=== PATIENT | female | born 1940 | race Caucasian/White ===

== ENCOUNTER 2021-02-12 15:48 | Emergency (ER) | payer OTHER ==
[~2021-02-12] VITALS: Ht 167.6 cm; Wt 79.4 kg
--- NOTE | 2021-02-12 16:08 | NUR ---
DELI CLERK: PT TO ROOM FROM LOBBY
[2021-02-12 16:26] VITALS: BP 126/77
--- NOTE | 2021-02-12 16:28 | NUR ---
PT PRESENTS TO ED WITH C/O R SIDED FACIAL PAIN. SWELLING/ERYTHEMA NOTED TO R SIDE OF FACE. 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 PT ALSO STATES THEY HAVE CHIPPED TOOTH ON R SIDE. PT A&O, RESPS EVEN AND UNLABORED, RHYTHM IN A FIB AT RATE OF 120-130. ALL MONITORS ATTACED, NADN.
--- NOTE | 2021-02-12 17:13 | NUR ---
ERMD SAHM AT BEDSIDE FOR EVAL
== END 2021-02-12 17:45 | disposition home or self-care (01) ==
LOC: ED 17:39
DX: K13.0 Diseases of lips (principal); J34.0 Abscess, furuncle and carbuncle of nose
CPT/HCPCS: 99283